=== PATIENT | male | born 1975 | race Caucasian/White ===

== ENCOUNTER → 2020-10-18 | Outpatient (CLI) | payer OTHER ==
[~2020-10-18] MED LIST: BENTYL 20MG TAB20 MG PO; CEFUROXIME500 MG PO; COLACE 100MG C100 MG PO; LISINOPRIL20 MG PO; MEDROL4 MG PO; MONTELUKAST SOD10 MG PO; POLYSPORIN OP3.5 GM OP; PREDNISONE 20 M20 MG PO; PREDNISONE 50 M50 MG PO; PREDNISONE20 MG PO; PROTONIX40 MG PO; PROVENTIL HFA6.7 GM INH; ZOFRAN ODT 4 MG4 MG PO; ZOFRAN4 MG PO
== END ==
LOC: KOH-I 16:23
DX: J44.9 Chronic obstructive pulmonary disease, unspecified (principal); R05 Cough
CPT/HCPCS: 71046

== ENCOUNTER 2020-11-08 14:18 | Emergency (ER) | payer OTHER ==
[2020-11-08 16:12] LABS: HEMOGLOBIN 14.1 gm/dl (14.0-17.5); RED BLOOD COUNT 4.74 M/UL (4.20-5.50); WHITE BLOOD COUNT 8.4 K/UL (4.5-11.0)
[2020-11-08 16:39] LABS: BUN/CREATININE RATIO 11 (0-10)
== END 2020-11-08 17:15 | disposition home or self-care (01) ==
LOC: ER1 14:18
PROVIDERS: Internal Medicine
DX: I10 Essential (primary) hypertension (principal); E66.01 Morbid (severe) obesity due to excess calories; Z87.891 Personal history of nicotine dependence
CPT/HCPCS: 36600; 71046; 80053; 82803; 83880; 84484; 85025; 85379; 93005; 99285

== ENCOUNTER → 2020-11-23 | Outpatient (CLI) | payer OTHER | LOC: HEART 5 13:08 | DX: J44.9 Chronic obstructive pulmonary disease, unspecified (principal) | CPT/HCPCS: 94060; 94729 ==

== ENCOUNTER → 2021-01-11 | Outpatient (CLI) | payer OTHER | LOC: EXRD 14:44 | DX: D17.79 Benign lipomatous neoplasm of other sites (principal) | CPT/HCPCS: 76882 ==

== ENCOUNTER 2021-03-22 10:33 | Emergency (ER) | payer OTHER ==
[2021-03-22 11:59] LABS: HEMOGLOBIN 13.5 gm/dl (14.0-17.5); RED BLOOD COUNT 4.46 M/UL (4.20-5.50); WHITE BLOOD COUNT 12.6 K/UL (4.5-11.0)
[2021-03-22 12:27] LABS: BUN/CREATININE RATIO 14 (0-10)
[2021-03-22] MEDS ORDERED: CEPHALEXIN500 M1 PO ×2 (14:25→14:27)
[2021-03-22] MEDS ORDERED: BACTRIM DS TAB1 EACH PO ×2 (14:25→14:27)
== END 2021-03-22 14:52 | disposition home or self-care (01) ==
LOC: ER1 10:33
PROVIDERS: Nurse Practitioner
DX: L03.116 Cellulitis of left lower limb (principal); J45.909 Unspecified asthma, uncomplicated; I10 Essential (primary) hypertension; F17.200 Nicotine dependence, unspecified, uncomplicated
CPT/HCPCS: 76882; 80053; 83605; 83735; 84100; 85025; 85652; 86140; 87040; 99283; J7030

== ENCOUNTER → 2021-08-09 | Outpatient (CLI) | payer OTHER ==
[~2021-08-09] MED LIST changes: +BACTRIM DS TAB1 EACH PO; +CEPHALEXIN500 M1 PO
== END ==
LOC: KOH-I 13:49
DX: R06.02 Shortness of breath (principal); R91.8 Other nonspecific abnormal finding of lung field
CPT/HCPCS: 71046